=== PATIENT | female | born 1945 | race American Indian/Alaskan Native ===

== ENCOUNTER 2022-12-22 11:33 | Emergency (ER) | payer OTHER, MEDICAID ==
[~2022-12-22] VITALS: Ht 175.3 cm; Wt 120.0 kg
[2022-12-22] MEDS ORDERED: CEPH-510 PO (18:43)
[2022-12-22] MEDS ORDERED: ACET1CAP14 PO (18:46)
[2022-12-22] MEDS ORDERED: LIDOCAINE 1% HCL (LOCAL ANESTH.) INJ 20ML MDV ID ONE (19:00)
[2022-12-22 19:04] VITALS: BP 108/76
== END 2022-12-22 19:50 | disposition home or self-care (01) ==
LOC: ER 11:33
DX: S51.812A Laceration without foreign body of left forearm, initial encounter (principal); E11.9 Type 2 diabetes mellitus without complications; I10 Essential (primary) hypertension; J44.9 Chronic obstructive pulmonary disease, unspecified; W26.8XXA Contact with other sharp object(s), not elsewhere classified, initial encounter; Y93.89 Activity, other specified; Y92.89 Other specified places as the place of occurrence of the external cause; Y99.8 Other external cause status
CPT/HCPCS: 12002; 73090